=== PATIENT | male | born 1940 | race Caucasian/White ===

== ENCOUNTER 2018-02-17 09:20 | Inpatient (IN) | payer MEDICARE, OTHER ==
[2018-02-23] MEDS ORDERED: MECLIZINE 25 MG TABLET PO ONE (06:00)
[2018-02-23] MEDS ORDERED: VANCOMYCIN HCL 1,000 MG in DEXTROSE 5 % IN WATER 250 ML IVPB ONE ×2 (06:00)
[2018-02-23] MEDS ORDERED: METOCLOPRAMIDE 10 MG TABLET PO ONE (06:00)
[2018-02-23] MEDS ORDERED: CELECOXIB 100 MG CAPSULE PO ONE (06:00)
[2018-02-23] MEDS ORDERED: FAMOTIDINE 20MG TABLET PO ONE (06:00)
[2018-02-23] MEDS ORDERED: CEFAZOLIN 2 Gram 2 GM/50 ML BAG IVPB ONE (06:00)
[2018-02-23 07:57] LABS: ABO GROUP A; ANTIBODY SCREEN NEGATIVE (NEGATIVE); RH TYPE POSITIVE
[2018-02-23] MEDS ORDERED: NALOXONE 0.4 MG/1 ML VIAL IVP PRN (10:52)
[2018-02-23] MEDS ORDERED: ONDANSETRON HCL IV 4 MG/2 ML VIAL IVP PRN (10:52)
[2018-02-23] MEDS ORDERED: BISACODYL 10 MG SUPP RC PRN (10:52)
[2018-02-23] MEDS ORDERED: MAGNESIUM HYDROXIDE 30 ML UDC PO PRN (10:52)
[2018-02-23] MEDS ORDERED: DIPHENHYDRAMINE HCL 25 MG CAPSULE PO PRN (10:52)
[2018-02-23] MEDS ORDERED: HYDROMORPHONE HCL 2 MG/ML VIAL IM PRN (10:52)
[2018-02-23] MEDS ORDERED: ACETAMINOPHEN W/ CODEINE 300MG/60MG TABLET PO PRN ×2 (10:52)
[2018-02-23] MEDS ORDERED: AL HYDROX/MAG HYDROX 30ML UD PO PRN (10:52)
[2018-02-23] MEDS ORDERED: KETOROLAC 30 MG/ML VIAL IVP PRN ×2 (10:52)
[2018-02-23] MEDS ORDERED: ACETAMINOPHEN 325 MG TAB PO PRN (10:52)
[2018-02-23] MEDS ORDERED: ZOLPIDEM TARTRATE 5 MG TABLET PO PRN (10:52)
[2018-02-23] MEDS: HYDROCODONE/APAP 5/325MG TABLET PO PRN ×2 (13:34→19:48)
[2018-02-23] MEDS ORDERED: 0.9 % SODIUM CHLORIDE 10 ML VIAL IVP ONE (14:00)
[2018-02-23] MEDS ORDERED: TRANEXAMIC ACID 1,000 MG/10 ML ML IV ONE ×2 (14:00→14:47)
[2018-02-23] MEDS ORDERED: BUPIVACAINE 0.5% W/EPI MPF 30 ML VIAL IVP ONE (14:47)
--- NOTE | 2018-02-23 15:01 | Rehab Evaluation ---
Patient Information - Patient Information Diagnosis: R hip OA Ordered Treatment: PT Evaluate and Treat Status: Initial Evaluation Surgery: Yes (R THR) Date of Surgery: 02/23/18 Past Medical/Surgical Hx: PAST MEDICAL/SURGICAL HISTORY Past Surgical History cervical fusion x's 2 right knee repair ORIF open heart 30 yrs ago bypass? PMH - Respiratory Hx Respiratory Disorders Yes Hx Sleep Apnea Yes: hx of Hx of CPAP No: doesnt use anymore since 70 lb wt loss Hx of SOB Yes: with exertion PMH - Cardiovascular Hx Cardiovascular Disorders Yes Hx Abnormal EKG Yes Hx Cardiac Catheterization Yes Hx Heart Attack Yes: 30 years ago Hx Hypertension Yes: on Norvasc good control Hx Palpitations Yes: pt just did 30 day haltor monitor Hx Coronary Artery Disease Yes Hx Coronary Artery Bypass Yes: 30 years ago Graft Exercise Tolerance Fair Comment: because of hip. Seeing cardio 02-19-18 Dr. Cinthia Manning PMH - Neuro Hx Neurological Disorders Yes Hx Dementia Yes: alzheimers beginning stages Hx Dizziness Yes: when he gets up fast PMH - GI Hx Gastrointestinal Disorders Yes Hx Gastroesophageal Reflux Yes: on meds good control Hx Weight Loss/Weight Gain Yes: 70 lbs loss 5 years ago PMH - Hx Genitourinary Disorders No PMH - Endocrine Hx Endocrine Disorders No PMH - Musculoskeletal Hx Musculoskeletal Disorders Yes Hx Arthritis Yes: right hip and knees PMH - Psych Hx Psychiatric Problems Yes Hx Depression Yes PMH - Hematology/Oncology Hx Hematology/Oncology No Disorders Premorbid Status: Detail (Prior to surgery the patient was independent with mobility.) Social History: Detail (The patient lives with spouse in a one story house with 3 steps at the enterance and one handrail on the R when ascending the stairs. The patient's bathroom is equipped with a tub/shower combination with a shower seat with transfer bench and a standard height toilet. Grab bars are present by the tub and toilet. The patient has a front wheeled walker and standard cane.) Precautions: [place], Fall, Other (R THR precautions.) - Time With Patient Total Time Spent With Patient (Min): 30 Treatment Procedures: Detail (Initial Evaluation, gait training) Subjective Information - Subjective Information Per Patient (The patient had complaints of R hip pain which he rated initially as 4/5.) Objective Data - Mental Status Patient Orientation: Oriented x3 - Visual Perception Appears within normal limits for therapeutic activities - ROM Not within normal limits (The patient's R hip is within THR precautions.) - Strength/Tone Not within normal limits (The patient's R LE strength was not tested secondary to s/p surgery, however strength was functional ie: patient was able to lift R LE out of bed and ambulate. The patient's L LE strength is WFL.) - Bed Mobility Independent (The patient was independent with supine to and from sit transfer.) - Transfers Independent (The patient was independent with sit to and from stand transfer.) - Balance Balance Sitting: Good Balance Standing: Good - Sensation Intact - Gait Detail (The patient ambulated with front wheeled walker WBAT on the R LE independently a distance of 52 feet x 1 with verbal cues to follow THR precautions when turning.) Therapy Assessment - Therapy Assessment Detail (The patient was independent with bed mobility, transfers and ambulated independently household distances. Feel the patient will progress well with mobility.) Patient Education - Patient Education Teaching Topic: Precautions (The patient required cueing to recall THR precautions.) Response: Reinforcement Needed Teaching Method: Discussion Teaching Recipient: Patient Barriers To Learning: Age Related Problem List - Problem List Physical Therapy Problem List: Detail (1) Decreased R LE strength 2) Nonambulatory on stairs) Goals - Goals Physical Therapy Goals: 1) The patient will ambulatory on stairs with supervision for safety using proper technique. 2) The patient will be independent with THR HEP and express good understanding of THR precautions. Prognosis - Prognosis Good Plan - Plan Physical Therapy Plan: PT 1-2 sessions for gait training on stairs and instruction in THR precautions.
--- NOTE | 2018-02-23 15:40 | Rehab Evaluation ---
Patient Information - Patient Information Diagnosis: DJD right hip Ordered Treatment: OT Evaluate and Treat Status: Initial Evaluation Surgery: Yes (R THR) Date of Surgery: 02/23/18 Past Medical/Surgical Hx: PAST MEDICAL/SURGICAL HISTORY Past Surgical History cervical fusion x's 2 right knee repair ORIF open heart 30 yrs ago bypass? PMH - Respiratory Hx Respiratory Disorders Yes Hx Sleep Apnea Yes: hx of Hx of CPAP No: doesnt use anymore since 70 lb wt loss Hx of SOB Yes: with exertion PMH - Cardiovascular Hx Cardiovascular Disorders Yes Hx Abnormal EKG Yes Hx Cardiac Catheterization Yes Hx Heart Attack Yes: 30 years ago Hx Hypertension Yes: on Norvasc good control Hx Palpitations Yes: pt just did 30 day haltor monitor Hx Coronary Artery Disease Yes Hx Coronary Artery Bypass Yes: 30 years ago Graft Exercise Tolerance Fair Comment: because of hip. Seeing cardio 02-19-18 Dr. Cinthia Manning PMH - Neuro Hx Neurological Disorders Yes Hx Dementia Yes: alzheimers beginning stages Hx Dizziness Yes: when he gets up fast PMH - GI Hx Gastrointestinal Disorders Yes Hx Gastroesophageal Reflux Yes: on meds good control Hx Weight Loss/Weight Gain Yes: 70 lbs loss 5 years ago PMH - Hx Genitourinary Disorders No PMH - Endocrine Hx Endocrine Disorders No PMH - Musculoskeletal Hx Musculoskeletal Disorders Yes Hx Arthritis Yes: right hip and knees PMH - Psych Hx Psychiatric Problems Yes Hx Depression Yes PMH - Hematology/Oncology Hx Hematology/Oncology No Disorders Premorbid Status: Detail (Prior to surgery the patient was independent with mobility and outdoor chores.) Social History: Detail (The patient lives with spouse in a one story house with 3 steps at the entrance and one handrail on the R when ascending the stairs. The patient's bathroom is equipped with a tub/shower combination with an extended shower seat and a standard height toilet. Grab bars are present by the tub and toilet. The patient has a front wheeled walker, standard cane, auto body man and long shoe horn.) Precautions: [place], Fall, Other (R THR precautions.) - Time With Patient Total Time Spent With Patient (Min): 40 Treatment Procedures: Detail (OT eval low complexity) Subjective Information - Subjective Information Per Patient Objective Data - Pain Pain Present: Yes (5-6/10) - Mental Status Patient Orientation: Oriented x3 - Visual Perception Appears within normal limits for therapeutic activities - ROM Within normal limits (Bijan UE AROM WNL) - Strength/Tone Within normal limits (Bijan UE strength WNL) - Coordination Appears within normal limits for therapeutic activities - Bed Mobility Independent (Ind with supine to sit and sit to supine.) - Transfers Independent (Ind with sit to stand from EOB and chair.) - Balance Balance Sitting: Good Balance Standing: Fair - Sensation Intact - Gait Detail (Pt ambulating in room with 2 wheeled walker.) - ADL's/IADL's Detail (Pt educated re: use of auto body man, sock aid and long shoe horn for modified LE dressing techniques while maintaining total hip precautions. He was able to demonstrate donning underwear, pants, socks and tennis shoes with verbal cues and use of auto body man and sock aid. He required verbal cueing to maintain hip precautions. Pt reports he will have assistance from his for all ADLs. Reviewed shower transfer safety and modifications, pt verbalized understanding.) Therapy Assessment - Therapy Assessment Detail (Pt demonstrates use of adaptive equipment for modified LE dressing with verbal cues to maintain total hip precautions.) Problem List - Problem List Physical Therapy Problem List: Detail (1) Decreased R LE strength 2) Nonambulatory on stairs) Occupational Therapy Problem List: Detail (No current IP OT problems identified. ) Goals - Goals Physical Therapy Goals: 1) The patient will ambulatory on stairs with supervision for safety using proper technique. 2) The patient will be independent with THR HEP and express good understanding of THR precautions. Occupational Therapy Goals: No current IP OT goals identified. Prognosis - Prognosis Good Plan - Plan Physical Therapy Plan: PT 1-2 sessions for gait training on stairs and instruction in THR precautions. Occupational Therapy Plan: No further IP OT required at this time. Thank you for this referral.
[2018-02-23] MEDS: CEFAZOLIN 2 Gram 2 GM/50 ML BAG IVPB SCH (17:07)
[2018-02-23] MEDS: TRAMADOL HCL 50 MG TABLET PO PRN ×2 (17:32→22:04)
[2018-02-23] MEDS: POTASSIUM CHLORIDE/D5-0.9%NACL 20 MEQ/1,000 ML BAG IV SCH ×2 (20:23→20:45)
[2018-02-23] MEDS ORDERED: ATORVASTATIN 20 MG TABLET PO SCH (22:00)
[2018-02-23] MEDS: DOCUSATE SODIUM 100 MG CAPSULE PO SCH (22:03)
[2018-02-24] MEDS: HYDROCODONE/APAP 5/325MG TABLET PO PRN ×2 (00:24→06:16)
[2018-02-24] MEDS: CEFAZOLIN 2 Gram 2 GM/50 ML BAG IVPB SCH ×2 (00:24→10:30)
[2018-02-24] MEDS: TRAMADOL HCL 50 MG TABLET PO PRN ×2 (03:46→10:35)
[2018-02-24] MEDS: POTASSIUM CHLORIDE/D5-0.9%NACL 20 MEQ/1,000 ML BAG IV SCH ×2 (05:00→13:33)
[2018-02-24 06:29] LABS: HEMOGLOBIN 9.3 gm/dl (14.0-18.0)
[2018-02-24 06:44] LABS: BLOOD UREA NITROGEN 9 mg/dL (8-23); CREATININE 0.9 mg/dL (0.7-1.2); EST GLOMERULAR FILTRATION RATE > 60 mL/min; GLUCOSE,RANDOM 113 mg/dL (74-109)
[2018-02-24] MEDS ORDERED: PANTOPRAZOLE SODIUM 40 MG TABLET PO SCH (07:00)
[2018-02-24] MEDS ORDERED: LIDOCAINE 2% MDV (20MG/ML) 20ML VIAL IV ONE (08:08)
[2018-02-24] MEDS ORDERED: EPHEDRINE SULFATE 50 MG/ML ML IV ONE (08:08)
[2018-02-24] MEDS ORDERED: PROPOFOL 10 MG/ML VIAL IV ONE (08:08)
[2018-02-24] MEDS ORDERED: MIDAZOLAM HCL 2MG/2ML VIAL IV ONE (08:08)
--- NOTE | 2018-02-24 09:11 | Operative Note ---
DATE OF SURGERY: 02/23/2018 PREOPERATIVE DIAGNOSIS: End-stage arthrosis of the right hip. POSTOPERATIVE DIAGNOSIS: End-stage arthrosis of the right hip. OPERATION: Cementless right total hip arthroplasty using Prieto and Nephew components with a size 56 no-hole Reflection cup, 32 mm diameter 35-degree offset liner, a size 13 high-offset cementless Roundup stem with a +0 32 mm diameter cobalt chrome head. Surgeon: Chapito Gutierrez MD Anesthesia: Spinal. PREPARATION: Chloraprep. INDIVIDUAL CONSIDERATIONS: None. PROCEDURE: The patient was taken to the operating room, placed supine on the operating room table. He had a successful induction of spinal anesthetic. He was then placed on his side, right side up and his right leg and hip were prepped and draped in the usual fashion. The patient had direct posterior approach to the hip. Sharp dissection carried down through skin and subcutaneous tissues. Small veins were coagulated with a Bovie. The tensor gluteal fascia was opened along the entire length of the incision, and deep retractors were placed. Short external rotators were identified, piriformis fossa removed exposing the posterior capsule. Posterior capsulectomy was performed. Hip was dislocated posteriorly. The patient had exposed bone on the femoral head. A femoral neck cut was then made about a fingerbreadth above the lesser trochanter using oscillating saw. A rim capsulectomy was performed. The patient had multiple cartilaginous loose bodies within the acetabulum, and these were all removed. Ligamentum was debrided out starting with a 45 mm reamer to medialize. I reamed just the medial wall and then to the introitus with a 55 for a 56 cup. I slightly under-reamed to 54. After thorough irrigation, I impacted a size 56 no-hole Reflection cup in 20 degrees of forward flexion and 40 degrees of abduction using the extraarticular alignment guide and bony landmarks. There was solid cementless fixation. I then placed a center cap screw, irrigated out completely, and then impacted a 35-degree offset liner with the offset primarily posteriorly and slightly inferiorly. This gave it excellent stable acetabular construct, and this was packed off. The proximal femur was delivered into the wound, and box cutting osteotome was used to remove the proximal metaphyseal bone. Mid stem reaming was done to a size 13. I started barely feeling cortex between 11-12. I broached to a size 13. Anteversion was dialed in to about 25 degrees to follow his natural anteversion angle. After calcar reaming and using the broach as a trial with a +0, I had absolute stability. I removed the trial, irrigated out completely, and impacted a size 13 high offset Roundup stem with solid cementless fixation, solid calcar contact. I then after irrigation impacted a size 32 mm +0 head on a Kyle taper, impacted it, reduced the hip after irrigation. I had absolute stability. Full anterior stability in extension and external rotation. Full at posterior stability with flexion even rotating it 90 degrees. Full stability at 140 degrees of flexion and knee to chest with internal rotation at least 30-40 degrees. The sciatic nerve was inspected and found to be completely intact. After thorough irrigation, I placed 1 g of tranexamic acid missed with 30 mL of saline deep to the fascia. The fascia was then closed with a running #2 quill, the skin and subcu were then infiltrated with 30 mL of 0.5% Marcaine with epinephrine. The subcu was closed in layers with running 0 quill, skin was closed with beba. Sterile bulky compressive JOEL type dressing was applied. The patient tolerated the procedure well. Needle and sponge counts were correct. Estimated blood loss was minimal. He was taken back to recovery in good condition. There were no complications. TOI
[2018-02-24] MEDS ORDERED: AMLODIPINE BESYLATE 5MG TAB PO SCH (10:00)
[2018-02-24] MEDS ORDERED: ASPIRIN 81 MG TABEC PO SCH (10:00)
[2018-02-24] MEDS ORDERED: DONEPEZIL HCL 5 MG TABLET PO SCH (10:00)
[2018-02-24] MEDS ORDERED: FERROUS SULFATE 325 MG TAB PO SCH (10:00)
[2018-02-24] MEDS ORDERED: RIVAROXABAN 10 MG TABLET PO SCH (10:00)
[2018-02-24] MEDS ORDERED: SERTRALINE HCL 50 MG TABLET PO SCH (10:00)
--- NOTE | 2018-02-24 10:20 | Physical Therapy Tx Note ---
Physical Therapy Tx Note - Treatment Note Tolerated: Good Total Time Spent With Patient: 20 Physical Therapy Tx Note: Detail (The patient was in bed when PT arrived. The patient was independent with bed mobility following THR precautions. The patient was independent with sit to and from stand transfer. The patient ambulated with front wheeled walker WBAT on the R LE independently a distance of 150 feet x 1 . The patient followed proper THR technique when turning. The patient ambulated on 3 steps with use of folded walker and railing with verbal cues for proper technique and supervision for safety. The patient completed THR exercises including quad sets, hamstring sets, gluteal sets, hip abduction supine, heel slides and ankle pumps. Total hip precautions were reviewed. The patient has met all inpatient goals and is discharged from inpatient PT.) Physical Therapy Problem List: Detail (1) Decreased R LE strength 2) Nonambulatory on stairs) Physical Therapy Goals: 1) The patient will be ambulatory on stairs with supervision for safety using proper technique. (Goal Met). 2) The patient will be independent with THR HEP and express good understanding of THR precautions.( Goal Met) Physical Therapy Plan: All inpatient PT goals have been met. Patient is to continue with Home PT.
[2018-02-24] MEDS: DOCUSATE SODIUM 100 MG CAPSULE PO SCH (10:36)
--- NOTE | 2018-02-26 08:20 | Discharge Summary ---
DATE OF ADMISSION: 02/23/2018 DATE OF DISCHARGE: 02/24/2018 DATE OF SURGERY: 02/23/2018 HISTORY: The patient is a delightful 77-year-old male who presents with end-stage arthrosis of his right hip. He was admitted after right total hip arthroplasty. Postoperatively he did well. His hospital course was unremarkable. The plan is to discharge him home in the care of his family and home PT visiting nurse has been arranged. He will be given Ultram for pain and Xarelto followed by aspirin for DVT prophylaxis. He will follow up in my office in 4 weeks. His discharge hemoglobin is 9.3. He did not require transfusion. FINAL DIAGNOSIS/PRIMARY DIAGNOSIS: End-stage arthrosis of the right hip. SECONDARY DIAGNOSES: Operative blood loss anemia. OPERATIONS/PROCEDURES: Cementless right total hip arthroplasty. DISCHARGE CONDITION: Good. TOI
== END 2018-02-24 13:30 | disposition home health service (06) | DRG 470 ==
LOC: MEDSURG 02-23 06:48
PROVIDERS: ADMIT Orthopaedic Surgery; ATTEND Orthopaedic Surgery
PROC: 0SR906A Replacement of Right Hip Joint with Oxidized Zirconium on Polyethylene Synthetic Substitute, Uncemented, Open Approach (ICD-10-PCS; principal; 2018-02-23 09:00)
DX: M16.11 Unilateral primary osteoarthritis, right hip (principal); I10 Essential (primary) hypertension; E78.00 Pure hypercholesterolemia, unspecified; G30.9 Alzheimer's disease, unspecified; Z95.1 Presence of aortocoronary bypass graft
CPT/HCPCS: 80048; 85014; 85018; 86850; 86900; 86901; 97110; J1885; J3480; J7060